=== PATIENT | female | born 1950 | race Two or more races ===

== ENCOUNTER → 2016-12-14 | Outpatient (CLI) | payer MEDICARE, BC ==
--- NOTE | 2016-12-14 17:27 | RADRPT ---
PROCEDURE: XR Knees. CLINICAL INDICATION: Bilateral knee pain. TECHNIQUE: Total of six views. Frontal, oblique, and lateral views of both knees. COMPARISON: No prior study is available for comparison. FINDINGS: There is no fracture or dislocation. The soft tissues are normal. There are degenerative changes with osteophytes arising from all 3 joint compartment margins bilater ally. There is bilateral medial joint compartment narrowing. There is no lytic or blastic lesion. There is no radiopaque foreign body. IMPRESSION: 1. Moderate degenerative changes of both knees. 2. No acute abnormality. RPTAT: QQ .Tejas Cervantes MD, MD Date Time Electronically viewed and signed by .Tejas Cervantes MD, on 12/14/2016 17:27 .R/
--- NOTE | 2016-12-20 22:05 | HKNOTE ---
DATE OF SERVICE: 12/14/2016 MAIN COMPLAINT: Pain in both knees, worse on the right side. HISTORY OF MAIN COMPLAINT: The patient is a 66-year-old female who is the of one of my colleag antonio. She complains of pain in the left knee which has been present for many months and is mild and pain in the right knee which she has had for about [address] Spencer about 3 years ago. He thought that the knee pain may be coming from her lower back. The patient complains the knee feels unstable at least once a day, sometimes several times a d ay. She is unable to extend the knee fully. The knee does not lock. The left knee does not swell, lock or feel unstable. The pain in her right knee is described as being severe. The patient gets numbness in both legs fro m her knees to the toes. Her right knee pain is aggravated by walking, weightbearing and stair clim kristine. She does get rest pain and night pain. She takes Advil or Tylenol for the pain which helps " a little." She does have a history of pain in her lower back which has been diagnosed as "arthritis ." She used to walk her dogs daily for 20 minutes. Now she cannot walk for more than 10 minutes at a time without stopping. She limps part of the time. The right leg feels longer than the left leg. She does not have a shoe lift. She cannot clip her toenails, but she puts her shoes and socks on with difficulty. SPORTING ACTIVITIES: Swimming. PAST ORTHOPEDIC HISTORY AND PREVIOUS ORTHOPEDIC OPERATIONS: None. PRIOR CORTISONE INTAKE: None. ALCOHOL INTAKE: None. OTHER JOINT PROBLEMS: None. BLOOD TESTS FOR ARTHRITIS: None. PRIOR INJURIES TO HIPS OR KNEES: None. 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 PAST MEDICAL HISTORY: 1. Hypercholesterolemia. 2. Hypothyroid. PAST SURGICAL HISTORY: 1. Thyroidectomy 25 years ago. 2. Appendectomy. 3. Hysterectomy. 4. Gallbladder removed. ALLERGIES: NONE. MEDICATIONS: 1. Synthroid 100 mcg daily by mouth. 2. Crestor 10 mg daily by mouth. 3. Aspirin 81 mg daily by mouth. 4. Vitamin D and C one tablet daily. 5. Calcium, magnesium, and Zinc one tablet daily. FAMILY HISTORY: Father at unstated age of cancer. No information on the mother. SYSTEMS REVIEW: Prone to "heartburn." Gait disturbance. Leakage of urine. Hemorrhoids. Otherwis e negative. HABITS: The patient does not smoke or drink alcoholic beverages. 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 Obrien [id number] [id number]. PHYSICAL EXAMINATION: GENERAL: The patient is a youthful 66-year-old female. VITAL SIGNS: Height 5 feet 4 inches, weight 195 pounds. Blood pressure 135/60, temperature 98.8. GAIT: Patient walks without a walking aid. Her gait is normal. HIPS: Both hips have a full range of motion without pain. RIGHT KNEE: The right knee shows normal alignment. Active and passive extension lacks 5 degrees (pa inful). Active and passive flexion lacks 15 degrees (painful). The medial and lateral collateral lig aments and cruciate ligaments are intact. Christ test is negative. There is no tenderness, scarring , crepitus, or cysts. One plus effusion over the medial joint line. The patella tracks normally. T here is no tenderness on the articular surface of the patella or in the patellar groove. The Q angle is normal. LEFT KNEE: The left knee shows normal alignment. Active and passive extension is 0 degrees. Active and passive flexion is 135 degrees. The medial and lateral collateral ligaments and cruciate ligamen ts are intact. Christ test is negative. There is no effusion, tenderness, scarring, or cysts. Two p genaro crepitus in the knee and under the patella. The patella tracks normally. There is no tenderness on the articular surface of the patella or in the patellar groove. The Q angle is normal. IMAGING: ____ DIAGNOSES: 1. Probable internal derangement of the right knee. 2. Mild degenerative osteoarthritis of the left knee. 3. Hypercholesterolemia. 4. Hypothyroid. MANAGEMENT: Under sterile conditions, the patient was given injection of 2 mL of Kenalog and 6 mL o f 2% lidocaine into the right knee. She is being sent for an MRI scan of the knee and further treatment will depend upon the findings. The patient will be called on her cell phone with the results ([phone]). Dictated By: BRIDGETT SOLIS/JUAN JOSE Conf#: [id number] DID#: [id number]
== END | disposition home or self-care (01) ==
LOC: HKI 14:47
DX: M25.561 Pain in right knee (principal); M17.12 Unilateral primary osteoarthritis, left knee; E03.9 Hypothyroidism, unspecified; E78.00 Pure hypercholesterolemia, unspecified
CPT/HCPCS: 20610; 73562; G0463